=== PATIENT | male | born 1985 | race Caucasian/White ===

== ENCOUNTER 2019-08-21 09:53 | Outpatient (CLI) | payer OTHER, SELFPAY ==
--- NOTE | 2019-08-21 11:00 | NEURO_ITS ---
Patient Number: [id number] Impression: # Complains of left foot drop. # Left peroneal relative slowing compared to posterior tibial. # Left peroneal F-wave prolonged. # Needle/EMG exam revealed scarcity of motor unit potentials in Ant Tibialis, Gastroc and EDB but normal short head of biceps femoris. # Suggestive of peroneal neuropathy. Nerve Conduction Studies Anti Sensory Summary Table Stim Site NR Peak (ms) P-T Amp (?V) Site1 Site2 Delta-P (ms) Dist (cm) Ghulam (m/s) Left Sup Fibular Anti Sensory (Ant Lat Mall) 14 cm 3.6 8.5 14 cm Ant Lat Mall 3.6 16.0 44 Left Sural Anti Sensory (Lat Mall) Calf 3.3 10.6 Calf Lat Mall 3.3 16.0 48 Motor Summary Table Stim Site NR Onset (ms) O-P Amp (mV) Site1 Site2 Delta-0 (ms) Dist (cm) Ghulam (m/s) Left Peroneal Motor (Vastus Med) Ankle 5.0 1.8 Popit Ankle 8.8 41.0 47 Popit 13.8 0.9 Left Tibial Motor (Abd Strickland Brev) Ankle 5.0 10.3 Knee Ankle 7.7 41.0 53 Knee 12.7 8.9 F Wave Studies NR F-Lat (ms) L-R F-Lat (ms) Left Peroneal (Mrkrs) (EDB) 55.31 Left Tibial (Mrkrs) (Abd Hallucis) 51.61 EMG Side Muscle Nerve Root Ins Act Fibs Amp Dur Recrt Comment Left AntTibialis Dp Br Fibular L4-5 Nml Nml Nml Nml Reduced Left Gastroc Tibial S1-2 Nml Nml Nml Nml Reduced Left Fibularis Long Sup Br Fibular L5-S1 Nml Nml Nml Nml Nml Left Flex Dig Long Tibial L5-S2 Nml Nml Nml Nml Nml Left Ext Dig Brev Dp Br Fibular L5, S1 Nml Nml Nml Nml Reduced Left QuadratusFem QuadFemoris L4-5, S1 Nml Nml Nml Nml Nml Left AbdHallucis MedPlantar S1-2 Nml Nml Nml Nml Nml Left BicepsFemS Sciatic L5-S1 Nml Nml Nml Nml Nml MTDD
== END 2019-08-21 09:54 | disposition home or self-care (01) ==
LOC: ANHNEURO 09:56
PROVIDERS: Visit Provider Physician Assistant Surgical
DX: M79.672 Pain in left foot (principal)
CPT/HCPCS: 95886; 95908

== ENCOUNTER 2021-01-26 09:00 | Outpatient (CLI) | payer OTHER, SELFPAY ==
--- NOTE | ~2021-01-26 | US_ITS ---
EXAMINATION: US abdomen complete EXAM DATE: 01/26/2021 10:16 INDICATION: Upper abdominal pain. TECHNIQUE: Multiple grayscale and Doppler images of the complete abdomen were obtained (by a technolo gist who performed the scan) and subsequently reviewed. There is no prior study for comparison. FINDINGS: The abdominal aorta is normal in caliber. Visualized portion IVC is patent. The pancreatic head a nd body are normal in appearance. The pancreatic tail is not visualized. The liver has normal echogenicity and contour. There are no focal liver lesions identified. There is no evidence of intrahepatic biliary duct dilation. Portal venous flow was seen in the hepatopedal , normal direction and has normal Doppler waveform. Common bile duct measures 4 mm, which is normal. The gallbladder wall is normal in thickness, with ex pected amount of distention. No sonographic evidence of pericholecystic fluid. There is no cholelit hiases. Technologist performing exam reports patient did not demonstrate sonographic Ballard's sign. Please note that this sign is less reliable in patients who have received pain medication. Right kidney: There is normal contour and echogenicity. It measures 10.4 x 5.6 x 4.1 centimeters. There are no focal renal lesions identified. There is no hydronephrosis. Left kidney: There is normal contour and echogenicity. It measures 11.0 x 5.0 x 5.2 centimeters. T here are no focal renal lesions identified. There is no hydronephrosis. The spleen measures 9.9 centimeters and is morphologically normal. IMPRESSION: Unremarkable complete abdominal ultrasound exam. Reviewed, dictated and finalized at location B. 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
== END 2021-01-26 09:01 | disposition home or self-care (01) ==
LOC: ANHIMG 09:03
PROVIDERS: PCP Physician Assistant; Visit Provider Physician Assistant
DX: R10.10 Upper abdominal pain, unspecified (principal)
CPT/HCPCS: 76700

== ENCOUNTER 2021-02-01 08:16 | Outpatient (CLI) | payer OTHER, SELFPAY ==
--- NOTE | ~2021-02-01 | XR_ITS ---
EXAMINATION: XR UGIAC w small bowel EXAM DATE: 02/01/2021 09:27 INDICATION: Upper abdominal pain, alternating constipation and diarrhea. TECHNIQUE: Mix [employer]ender radiograph was acquired. Standard single and double contrast barium upper GI examina tion and small bowel series was performed by radiologist Pelon Wyatt M.D. Spot images of the termina l ileum were acquired. Pulsed dose reduction fluoroscopy was used with fluoroscopic time of 0.5 ashlee gay. The DAP for this procedure was 6.3 Gycm2. A total of 101 images obtained for the exam. There is no prior study for comparison. FINDINGS: There is no esophageal stricture, diverticulum or mass identified. Gastroesophageal juncti on is normal in appearance. There is small sliding gastroesophageal hiatal hernia with mild reflux de monstrated. The stomach has a normal appearance without evidence of mass lesion, ulceration or filling defect. T here is normal rugal fold pattern. The duodenum and duodenal sweep are normal in appearance. Ileal and jejunal fold patterns are normal. There is no small bowel wall thickening or mass effect d isplacing small bowel. There are no intraluminal filling defects identified. There is no small michel l dilation. Terminal ileum is normal in appearance. Contrast reached the colon 30 minutes. IMPRESSION: Small hiatal hernia, reflux demonstrated. Unremarkable small bowel. Reviewed, dictated and finalized at location A. 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
== END 2021-02-01 08:17 | disposition home or self-care (01) ==
LOC: ANHIMG 08:18
PROVIDERS: PCP Physician Assistant; Visit Provider Physician Assistant
DX: R10.10 Upper abdominal pain, unspecified (principal); K44.9 Diaphragmatic hernia without obstruction or gangrene
CPT/HCPCS: 74246; 74248

== ENCOUNTER 2023-09-05 07:00 | Outpatient (NON) | payer OTHER, SELFPAY | END 2023-09-05 07:01 | disposition home or self-care (01) | LOC: ANHLAB 09-06 08:37 | PROVIDERS: PCP Physician Assistant; Visit Provider Internal Medicine Gastroenterology | DX: K63.5 Polyp of colon (principal); K52.9 Noninfective gastroenteritis and colitis, unspecified | CPT/HCPCS: 88305 ==

== ENCOUNTER 2023-09-05 10:27 | Day surgery (SDC) | payer OTHER, SELFPAY ==
[2023-08-29 11:29] VITALS: BMI 24.3
[2023-08-30 12:50] VITALS: BMI 24.4
--- NOTE | 2023-09-04 07:33 | P.PNAN_ITS ---
Anes - Initial Pre Proc Eval Procedure: Operation Date: 09/05/23 12:30 Proposed Procedures p Diagnostic Colonoscopy - Joey Vazquez MD Date/Time: 09/04/23 07:33 Surgeon: Joey Vazquez MD Pre Op Diagnosis: Irritable Bowel Syndrome with Diarrhea Patient Data Age: 38 Gender: M Height: 1.78 m Weight: 77.3 kg Allergies Allergy/AdvReac Type Severity Reaction Status Date / Time Penicillins Allergy Mild Swelling Verified 09/05/23 11:04 Home Medications Medication Instructions Recorded Confirmed Type sertraline 50 mg tablet 75 mg PO DAILY 08/30/23 09/05/23 History Patient hx anesthesia problems: none Family hx anesthesia problems: none Results Review: All pre-operative results and documents have been reviewed as part of the pre- operative evaluation. PMFSH Past Medical History Medical History Anxiety Hypothyroidism Social History Social History Smoking packs per day: 1 Smoking cigarettes per day: 20.0 Years smoked: 17 Smoking pack-years: 17.00 Smoking status: Current every day smoker Tobacco type: cigarettes Alcohol intake: current Alcohol use details: 2 per week Substance use type: does not use Living arrangements: with family Spiritual care concerns: No Anes - Eval Final PreProcedure Day of Procedure 09/04/23 07:33 Patient weight: normal Heart: regular rate and rhythm Lungs: clear to auscultation and normal air movement Airway: Mallampati scale class 1 Neurological: alert and oriented Last oral intake: >/= 8 hours ASA classification: II Emergent: no Anesthetic plan: proceed Anesthesia type and monitoring: general GIVS and standard monitoring Results Review: All pre-operative results and documents have been reviewed as part of the pre- operative evaluation. Informed Consent: The patient's anesthetic plan and its attendant risks and benefits were discussed with the patient/family/POA. Questions were solicited and answers provided to the satisfaction of the patient/family/POA.
--- NOTE | 2023-09-05 10:42 | P.HP_ITS ---
History of Present Illness History of Present Illness Consent: Risks, benefits, and alternatives have been discussed and questions answered. Patient agrees to proceed with procedure. Chief complaint: Irritable Bowel Syndrome with Diarrhea Narrative: Macario Lopez is a 38 year old male who has been troubled by chronic diarrhea. Review of Systems Review of Systems: All systems reviewed & are unremarkable except as noted in HPI and below PMFSH Past Medical History Medical History Anxiety Hypothyroidism Social History Social History Smoking packs per day: 1 Smoking cigarettes per day: 20.0 Years smoked: 17 Smoking pack-years: 17.00 Smoking status: Current every day smoker Tobacco type: cigarettes Alcohol intake: current Alcohol use details: 2 per week Substance use type: does not use Living arrangements: with family Spiritual care concerns: No Meds Home Medications and Allergies Home Medications Medication Instructions Recorded Confirmed Type sertraline 50 mg tablet 75 mg PO DAILY 08/30/23 09/05/23 History Allergies Allergy/AdvReac Type Severity Reaction Status Date / Time Penicillins Allergy Mild Swelling Verified 09/05/23 11:04 Exam Resp: Auscultation: clear to auscultation bilaterally Cardio: Rate: regular rate Rhythm: regular rhythm GI: GI Palp: Yes Soft to palpation and No Tenderness to palpation present (GI) Assessment and Plan Assessment and plan (1) Chronic diarrhea: Code(s): K52.9 - Noninfective gastroenteritis and colitis, unspecified Status: Acute Assessment and Plan: Colonoscopy with possible biopsy or polypectomy or cautery or injection of gong bstances.
[2023-09-05 11:05] VITALS: BP 122/89; PULSE 84; RESP 18; TEMP 37; O2SAT 98
[2023-09-05] MEDS: LACTATED RINGERS 1,000 ML 150 ML IV CONT (11:07)
[2023-09-05 12:01] VITALS: BP 112/85; PULSE 73; RESP 16; O2SAT 100
[2023-09-05 12:51] VITALS: BP 107/71; PULSE 68; RESP 14; O2SAT 98
[2023-09-05 13:01] VITALS: BP 112/85; PULSE 73; RESP 16; O2SAT 100
[2023-09-05 13:11] VITALS: BP 129/86; PULSE 69; RESP 16; O2SAT 100
--- NOTE | 2023-09-05 13:43 | WPDANESPN ---
Anes - Prog Note Post-Op Date/Time: 09/05/23 13:43 Cardiovascular status: normal Respiratory status: normal Airway patency: baseline Mental status: baseline Post-Op hydration status: normal Vital Signs: Last Vital Signs Temp 37.0 C 09/05/23 11:05 Pulse 69 09/05/23 13:11 Resp 16 09/05/23 13:11 BP 129/86 09/05/23 13:11 Pulse Ox 100 09/05/23 13:11 O2 Del Method Room Air 09/05/23 13:11 Pain Score (VAS): 0 I/O: Intake & Output 09/04/23 09/05/23 09/05/23 23:59 07:59 15:59 Intake Total 800 Balance 800 Post-procedural complaints: none Patient Feedback: Patient satisfied with anesthetic care. Other Findings: Patient vital signs back to baseline. Patient denies nausea and vomiting. Patient's pain under control. Patient OK for discharge.
== END 2023-09-05 13:30 | disposition home or self-care (01) ==
PROVIDERS: PCP Physician Assistant; Visit Provider Internal Medicine Gastroenterology
PROC: 0DJD8ZZ Inspection of Lower Intestinal Tract, Via Natural or Artificial Opening Endoscopic (ICD-10-PCS; CPT 45378; principal; 2023-09-05 12:30)
DX: D12.5 Benign neoplasm of sigmoid colon (principal); K64.8 Other hemorrhoids; K59.1 Functional diarrhea
CPT/HCPCS: 45385; 45380

== ENCOUNTER 2025-01-07 13:35 | Emergency (ER) | payer OTHER, SELFPAY ==
--- OUTSIDE RECORDS SUMMARY | 2024-10-08 05:15 | XMS_ITS ---
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 Name Role Phone Stefanie Mars Primary Care Provider Donovan Pan Unavailable [phone] REASON FOR VISIT 1 month f/u Social History Sex Assigned At : Social History Observation Description Sex Assigned At Male Encounters Encounter Location Date Provider Diagnosis [facility] [employer] [facility] [address] [place] [address] 10/08/2024 Donovan Montilla Plan Of Treatment No Information Progress Notes * DARREN BILL ADOB: [birth year] (39 yo M)Acc No.[id number]:10/08/2024 Patient: DARREN WELCH Provider: KALANI CARVALHO :1985 A ge:39 Y S ex:Male Date:10/08/2024 [facility] [id number] Pcp:Stefanie KENNY Subjective: * Chief Complaints: * 1 month f/u * Electronic signature of KALANI Lindsay on 01/07/2025 at 03:41 PM CDT Sign off status: Pending * Provider: KALANI CARVALHO Date: 0 10/08/2024 Generated for Printi ng/Faxing/eTransmitting on: 1 03:41 PM CDT
--- OUTSIDE RECORDS SUMMARY | 2024-12-13 09:00 | XMS_ITS ---
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 Role Phone Stefanie Mars Primary Care Provider Donovan Pan Unavailable [phone] REASON FOR VISIT 1 month f/u Social History Sex Assigned At : Social History Observation Description Sex Assigned At Male Encounters Encounter Location Date Provider Diagnosis [facility] [employer] [facility] [address] [place] [address] 12/13/2024 Donovan Montilla Plan Of Treatment No Information Progress Notes * DARREN BILL ADOB: [birth year] (39 yo M)Acc No.[id number]:12/13/2024 Patient: DARREN WELCH Provider: KALANI CARVALHO :1985 A ge:39 Y S ex:Male Date:12/13/2024 Address:[address] [facility] Pcp:Stefanie KENNY Subjective: * Chief Complaints: * 1 month f/u Billing Information: * Procedure Codes: * Electronic signature of KALANI Lindsay on 01/07/2025 at 03:40 PM CDT Sign off status: Pending * Provider: KALANI CARVALHO Date: Generated for Printi ng/Faxing/eTransmitting on: 03:40 PM CDT
--- OUTSIDE RECORDS SUMMARY | 2024-12-13 11:30 | XMS_ITS ---
Author Organization [facility] Address [address] [facility] [address] [place] [address] Care Team Providers Care Associate Director Name Role Phone Stefanie Mars Primary Care Provider Donovan Pan Unavailable [phone] Allergies Allergen (clinical drug ingredient) Drug/Non Drug Allergy documented on EMR Reaction Allergy Type Onset Date Status Penicillin Unknown Drug Allergy Active REASON FOR VISIT Consultation Medications Medication SIG (Take, Route, Frequency, Duration) Notes Start Date End Date Status FLUoxetine HCl 40 MG Capsule 1 capsule Orally Once a day; Duration: 30 days 12/13/2024 Active Rosuvastatin Calcium 10 MG Tablet TAKE 1 TABLET BY MOUTH EVERY DAY IN THE EVENING Oral; Duration: 90 Days Not-Taking NyQuil Not-Taking traZODone HCl 50 MG Tablet 0.5 to 1 tablet at bedtime Orally Once a day; Duration: 30 days As needed 08/20/2024 Not-Taking buPROPion HCl ER (XL) 300 MG Tablet Extended Release 24 Hour 1 tablet every morning Orally Once a day; Duration: 30 days 12/13/2024 Active valACYclovir HCl 1 GM Tablet TAKE 1 TABLET BY MOUTH EVERY 12 HOURS FOR 1 DAY NEEDED FOR FLARE UP ONLY Oral; Duration: 10 Days Active buPROPion HCl ER (XL) 300 MG Tablet Extended Release 24 Hour TAKE 1 TABLET BY MOUTH EVERY DAY IN THE MORNING; Duration: 90 Not-Taking FLUoxetine HCl 20 MG Capsule 3 capsule Orally Once a day; Duration: 30 days Active Social History Tobacco Use: Social History Observation Description Date Details (start date - stop date) Current Smoker 03/13/2004 - NA Sex Assigned At : Social History Observation Description Sex Assigned At Male Social History Social History Social Info Question Answer Notes Household: Marital Status: Single Number of Adults in household: 1 Number of Children in Household: 0 Level of Education: Not Finished College Household: Social Info Question Answer Notes Household Marital status: single Level of education: not finished college Tobacco Use: Social Info Question Answer Notes Tobacco Control (Standard) When did you start smoking? 03/13/2004 How often do you smoke cigarettes? Every day How many cigarettes a day do you smoke? 11-20 How soon after you wake up do you smoke your first cigarette? 6-30 minutes Are you interested in quitting? Thinking about quitting Tobacco use: Current smoker Vital Signs Blood pressure systolic 121 mm Hg 12/14/19 25 Blood pressure diastolic 77 mm Hg 025 Heart Rate 67 /min 12/13/2024 Height 70 in 12/13/2024 Weight 161 lbs 12/13/2024 BMI 23.1 kg/m2 12/13/2024 Height-cm 177.8 cm 12/13/2024 Weight-kg 73.03 kg 12/13/2024 Encounters Encounter Location Date Provider Diagnosis [facility] [address] [place] [address] [address] [facility] [address] [place] [address] 12/13/2024 Donovanpetra Roachoza DAMIR (generalized anxiety disorder) F41.1 ; Severe episode of recurrent major depressive disorder, without psychotic features F33.2 ; Insomnia due to other mental disorder F51.05 and Nicotine dependence, cigarettes, uncomplicated F17.210 Assessments Encounter Date Diagnosis (ICD Code) Assessment Notes Treatment Notes Treatment Clinical Notes Section Notes 12/13/2024 DAMIR (generalized anxiety disorder) (ICD-10 - F41.1) 12/13/2024 Severe episode of recurrent major depressive disorder, without psychotic features (ICD-10 - F33.2) 12/13/2024 Insomnia due to other mental disorder (ICD-10 - F51.05) may try magnesium glycinate 200mg at bedtime 12/13/2024 Nicotine dependence, cigarettes, uncomplicated (ICD-10 - F17.210) Plan Of Treatment Medication Medication Name Sig Start Date Stop Date Notes FLUoxetine HCl 40 MG Capsule 1 capsule O rally Once a day; Duration: 30 days 12/13/2024 buPROPion HCl ER (XL) 300 MG Tablet Extended Release 24 Hour 1 tablet every morning Orally Once a day; Duration: 30 days 12/13/2024 Treatment Notes Assessment Notes Insomnia due to other mental disorder david y try magnesium glycinate 200mg at bedtime Next Appt Details Follow Up: 2 Months, Reason: f/u depression History and Physical Notes * HPI (History of Present Illness) Category Sub-Category Detail Notes Category Not es History of Presenting Problem Referral source transfer from walk in clinic Depression screening done Anxiety Onset: years ago, As sociated Symptoms: fearful, doesn't like to be around people unless has a beer or two, worst case scenario thinking, anxious before social settings, worries what people think of him, heart racing, skin flushing, trembling, wont use a public bathroom panic attacks Depression Onset: years ago, hi gh school age, Associated Symptoms: No enjoyment in things, self isolates, decreased motivation, not caring for home Substance abuse smokes 1ppd cigarett es, alcohol use maybe once a month- 2.5 drinks Anger management used to get angry wh en did something stupid, easily frustrated Suicidal ideation took a bunch of pi lls one time, no suicide plan. Would be ok if he didn't wake up. Would like to not be here in 5 years. States his pets are his responsibility, family, friends. Sleep disturbance difficulty falling a sleep Psychosis no psychosis Psychotherapy went in 2019, after break up with a girlfriend Lynn/Hypomania denies Self-harm history denies Legal History denies Depression screening PHQ-9 Little inte rest or pleasure in doing things: Several days Feeling down, depressed, or hopeless: Se veral days Trouble falling or staying asleep, or sl eeping too much: Nearly every day Feeling tired or having little energy: S everal days Poor appetite or overeating: Not at all Feeling bad about yourself o r that you are a failure, or have let yourself or your family down: Several days Trouble concentrating on thi ngs, such as reading the newspaper or watching television: Not at all Moving or speaking so slowly that other people could have noticed; or the opposite, being so fidgety or restless that you have been moving around a lot more than usual: Not at all Thoughts that you would be b lux off or of hurting yourself in some way: Nearly every day (Consider Suicide Assessment Risk) Total Score: 10 Interpretation: Moderate Depression Intervention Depression Screening Findings: P ositve Follow-Up for Depression: [facility] health care management, Psychiatric follow-up Suicide Risk Assessment Performed: __ da te Depression Screening DAMIR-7 (2018 Edition) Feelin g nervous, anxious, or on edge: Several days Not being able to stop or control worryi ng: Several days Worrying too much about different things : Several days Trouble relaxing: Not at all Being so restless that it is hard to sit still: Several days Becoming easily annoyed or irritable: No t at all Feeling afraid as if something awful dustin ht happen: Several days Total DAMIR-7 Score: 5 Interpretation of Total: (5 to 9) Mild Nolan-Suicide Severity Rating Scale Suicide Risk (CSRS-screener) in the past one month Have you wished you were or wished you could go to sleep and not wake up?: Yes in the past one month Have y ou actually had any thoughts of killing yourself?: No Examination Category Sub-Category Detail Notes Category Not es Psychiatry Appearance: well-groomed, we ll-nourished, ..., slender build Attitude: cooperative Psychomotor activity: within normal rang e Attention: good Degree of awareness of surroundings: wit hin normal limits Orientation: awake, alert and hiral ented x 3 Affect / mood: appropriate, full ra nge Speech / language: appropriate pitch/mo dulation, clear and coherent, normal rate, volume, and articulation (RVR), proper grammar used Insight: good Judgement: good Thought process: intact Thought content: appropriate Perceptual disorders: no perceptual diso rder noted Suicidal ideation: none Intellectual functioning: no impairment noted Memory status: no impairment noted Delusions: no Hallucinations: no Progress Notes * DARREN BILL ADOB: [birth year] (39 yo M)Acc No.[id number]:12/13/2024 Patient: DARREN WELCH Taye Provider: KALANI CARVALHO :1985 A ge:39 Y S ex:Male Date:12/13/2024 Address:[address] [place], [place] [id number] Pcp:Stefanie KENNY Subjective: * Chief Complaints: * C onsultation * HPI: H istory of Presenting Problem: Depression O nset: years ago, high school age, Associated Symptoms: No enjoyment in things, self isolates, decreased motivation, not caring for home. Anxiety O nset: years ago, A ssociated Symptoms: fearful, doesn't like to be around people unless has a beer or two, worst case scenario thinking, anxious before social settings, worries what people think of him, heart racing, skin flushing, trembling, wont use a public bathroom p anic attacks. Sleep disturbance d ifficulty falling asleep. Lynn/Hypomania d enies. Psychosis n o psychosis. Suicidal ideation took a bunch of pills one time, no suicide plan. Would be ok if he didn't wake up. Would like to not be here in 5 years. States his pets are his responsibility, family, friends. Substance abuse s mokes 1ppd cigarettes, alcohol use maybe once a month- 2.5 drinks. Psychotherapy w ent in 2019, after break up with a girlfriend. Anger management u sed to get angry when did something stupid, easily frustrated. Self-harm history d enies. Legal History d enies. Referral source holly brown from walk in clinic. Depression screening done. D epression Screening: DAMIR-7 (2018 Edition) F eeling nervous, anxious, or on edge S everal days N ot being able to stop or control worrying?Several days W orrying too much about different things S everal days T rouble relaxing N ot at all B eing so restless that it is hard to sit still S everal days B ecoming easily annoyed or irritable N ot at all F eeling afraid as if something awful might happen S everal days T otal DAMRI-7 Score 5 I nterpretation of Total ( 5 to 9) Mild [place]-Suicide Severity Rating Scale: Suicide Risk (CSRS-screener) i n the past one month Have you wished you were or wished you could go to sleep and not wake up? Y es i n the past one month Have you actually had any thoughts of killing yourself? N o D epression screening: PHQ-9 L ittle interest or pleasure in doing things?Several days F eeling down, depressed, or hopeless S everal days T rouble falling or staying asleep, or sleeping too much N early every day F eeling tired or having little energy S everal days P oor appetite or overeating N ot at all F eeling bad about yourself or that you are a failure, or have let yourself or your family down S ever days T rouble concentrating on things, such as reading the newspaper or watching television N ot at all M oving or speaking so slowly that other people could have noticed; or the opposite, being so fidgety or restless that you have been moving around a lot more than usual N ot at all T houghts that you would be better off or of hurting yourself in some way N early every day (Consider Suicide Assessment Risk) T otal Score 1 0 I nterpretation M oderate Depression Intervention D epression Screening Findings P ositve F ollow-Up for Depression M ental health care management, Psychiatric follow-up S uicide Risk Assessment Performed _ _ date P ast Psychiatric Medications: melatonin- didn't work, Nyquil, sertraline- not effective, trazodone-not effective, bupropion, fluoxetine, amitriptyline. * Medical History: Past Psychiatric History: Anxiety Disorder abdominal aortic aneurysm: No atrial fibrillation: No chronic fatigue syndrome: No essential tremor: No hyperlipidemia: No hypertension: No Parkinson's disease: No restless leg syndrome: No stroke: No subdural hematoma: No type 1 diabetes mellitus: No type 2 diabetes mellitus: No vitamin B12 deficiency: No vitamin D deficiency: Yes Herpes simplex virus 1 Hyperlipidemia Imported from [facility]: On 07/04/2024 the patient had an office visit with Dr. Jonathan Alcantara. During this visit, the patient was screened for diabetes mellitus and had a positive screening for depression on the PHQ-9. Other issues addressed included a skin cyst, generalized anxiety disorder, hyperlipidemia, hypothyroidism, intrusive thoughts, and long-term drug therapy. The patient's body mass index was noted to be within the normal range of 20-24. Medical History Verified * Surgical History: shoulder surgery wisdom teeth extraction Hemorrhoid and anal fissure repair Surgical History verified. * Hospitalization/Major Diagno stic Procedure: inpatient psychiatric hospitalization- anxiety/panic Hospitalization Verified. * Social History: T obacco Use: T obacco Control (Standard) W hen did you start smoking? H ow often do you smoke cigarettes? E very day H ow many cigarettes a day do you smoke? 1 1-20 H ow soon after you wake up do you smoke your first cigarette? 6 -30 minutes A re you interested in quitting? T hinking about quitting T obacco use: C urrent smoker H ousehold: Bernardo justyna Taz arital status: s priya L evel of education: n ot finished college S ocial History: H justyna Mcghee arital Status: S priya N umber of Adults in household: 1 N umber of Children in Household: 0 L evel of Education: N ot Finished College S ocial History Verified. * Medications: T akingvalACYclovir HCl 1 GM Tablet TAKE 1 TABLET BY MOUTH EVERY 12 HOURS FOR 1 DAY NEEDED FOR FLARE UP ONLY Oral buPROPion HCl ER (XL) 300 MG Tablet Extended Release 24 Hour 1 tablet every morning Orally Once a day FLUoxetine HCl 20 MG Capsule 3 capsule Orally Once a day Taking valACYclovir HCl 1 GM Tablet TAKE 1 TABLET BY MOUTH EVERY 12 HOURS FOR 1 DAY NEEDED FOR FLARE UP ONLY Oral Taking buPROPion HCl ER (XL) 300 MG Tablet Extended Release 24 Hour 1 tablet every morning Orally Once a day Taking FLUoxetine HCl 20 MG Capsule 3 capsule Orally Once a day Not-TakingbuPROPion HCl ER (XL) 300 MG Tablet Extended Release 24 Hour TAKE 1 TABLET BY MOUTH EVERY DAY IN THE MORNING NyQuil Rosuvastatin Calcium 10 MG Tablet TAKE 1 TABLET BY MOUTH EVERY DAY IN THE EVENING Oral traZODone HCl 50 MG Tablet 0.5 to 1 tablet at bedtime Orally Once a day As neededNot-Taking buPROPion HCl ER (XL) 300 MG Tablet Extended Release 24 Hour TAKE 1 TABLET BY MOUTH EVERY DAY IN THE MORNING Not-Taking NyQuil Not-Taking Rosuvastatin Calcium 10 MG Tablet TAKE 1 TABLET BY MOUTH EVERY DAY IN THE EVENING Oral Not-Taking traZODone HCl 50 MG Tablet 0.5 to 1 tablet at bedtime Orally Once a day As neededDiscontinuedAmitriptyline HCl 25 MG Tablet TAKE 1 TABLET BY MOUTH EVERYDAY AT BEDTIME Medication List reviewed and reconciled with the patientDiscontinued Amitriptyline HCl 25 MG Tablet TAKE 1 TABLET BY MOUTH EVERYDAY AT BEDTIME Medication List reviewed and reconciled with the patient * Allergies: P enicillinyesAllergies Verified. Objective: * Vitals: B P:121/77mm Hg, HR:67/min, Wt:161lbs, Wt-k.03 kg, Ht: 70 in, Ht-cm: 177.8 cm, BMI:23.1Index, Body Surface Area: 1.9. * Examination: P sychiatry: Appearance: w ell-groomed, well-nourished, ..., slender build. Affect / mood: a ppropriate, full range. Attention: g ood. Attitude: c ooperative. Suicidal ideation: n one. Memory status: n o impairment noted. Degree of awareness of surroundings: w ithin normal limits.? Delusions: n o. Hallucinations: n o. Insight: g ood. Intellectual functioning: n o impairment noted. Judgement: g ood. Orientation: a wake, alert and oriented x 3. Perceptual disorders: n o perceptual disorder noted. Psychomotor activity: w ithin normal range. Speech / language: a ppropriate pitch/modulation, clear and coherent, normal rate, volume, and articulation (RVR), proper grammar used. Thought content: a ppropriate. Thought process: i ntact. Assessment: * Assessment: 1. S evere episode of recurrent major depressive disorder, without psychotic features - F33.2 (Primary) 2 . G AD (generalized anxiety disorder) - F41.1 3 .?Insomnia due to other mental disorder - F51.05 4 . N icotine dependence, cigarettes, uncomplicated - F17.210 Plan: * Treatment: 2. I nsomnia due to other mental disorder Notes: may try magnesium glycinate 200mg at bedtime * Procedure Codes: 9 6127 BEHAV ASSMT W/SCORE & DOCD/STAND INSTRUMENT * Preventive Medicine: Screenings: D epression screening Have you had a recent depression screening? Y es * Follow Up: 2 Months (Reason: f/u depression) Billing Information: * Visit Code: 00508 OFFICE OUTPATIENT VISIT 25 MINUTES DETAILED HISTORY AND EXAM/MODERATE MEDICAL DECISION MAKING. * Procedure Codes: 60963 BEHAV ASSMT W/SCORE & DOCD/STAND INSTRUMENT. * Electronic signature of KALANI Lindsay on 01/07/2025 at 03:40 PM CDT Sign off status: Pending * Provider: KALANI CARVALHO Date: 1 Generated for Connie nance/Shelli/Yao on: 03:40 PM CDT
--- NOTE | 2025-01-07 13:37 | ED_ITS ---
HPI - URI/Sore Throat General Chief Complaint: Upper Respiratory Infection Stated Complaint: Sore throat / Head Pain Time Seen by Provider: 01/07/25 13:36 Source: patient Mode of arrival: ambulatory Limitations: no limitations History of Present Illness HPI Narrative: Patient is a 39-year-old male who presents with 5 days of sore throat, congestion, cough and headache. Patient has taken NyQuil. Denies any fever, chills, nausea, vomiting, diarrhea, cough, congestion. Related Data Home Medications ?Medication ?Instructions ?Recorded ?Confirmed ?Last Taken ?Type sertraline 50 mg tablet 75 mg PO DAILY 08/30/23 06/08/0309/05/23 08:00 History bupropion HCl 300 mg 24 hr tablet, mg PO 01/07/25 Unk nown History extended release fluoxetine 40 mg capsule mg 01/07/25 Unknown History rosuvastatin 10 mg tablet mg 01/07/25 Unknown History valacyclovir 1 gram tablet mg 01/07/25 Unknown Histor y Allergies Allergy/AdvReac Type Severity Reaction Status Date / Time Penicillins Allergy Unknown Unknown Verified 01/07/25 13:49 Review of Systems Review of Systems: All systems reviewed & are unremarkable except as noted in HPI and below Constitutional: Constitutional: Denies chills, Denies fatigue, Denies fever(s), Reports headache(s), Denies malaise and Denies weakness Eyes: Eyes: Denies blurry vision, Denies itchy eyes and Denies loss of vision ENT: Denies otalgia, Denies headache(s), Reports nasal congestion, Denies sinus pain and Reports sore throat Cardiovascular: Cardiovascular: Denies chest pain, Denies irregular heart rhythm and Denies dyspnea Respiratory: Respiratory: Reports cough and Denies dyspnea Gastrointestinal: Gastrointestinal: Denies abdominal pain, Denies diarrhea, Denies nausea and Denies vomiting Musculoskeletal: Musculoskeletal: Denies back pain, Denies myalgias and Denies arthralgias Integumentary/Breasts: Skin/Breast: Denies pruritus and Denies rash Neurologic: Denies headache(s), Denies loss of vision and Denies weakness Psychiatric: Psychiatric: Reports no additional psychiatric complaints Endocrine: Endocrine: Denies fatigue Allergic/Immunologic: Allergic/Immunologic: Denies itchy eyes PMFSH Past Medical History Medical History Anxiety Hypothyroidism Social History Social History Smoking packs per day: 1 Smoking cigarettes per day: 20.0 Years smoked: 17 Smoking pack-years: 17.00 Smoking status: Current every day smoker Tobacco type: cigarettes Alcohol intake: current Alcohol use details: 2 per week Substance use type: does not use Living arrangements: with family Spiritual care concerns: No Comments At time of signature, agree with nursing past medical, surgical, social and family history. There is no relevant family history pertinent to the presenting complaint. Exam Const: General: cooperative, healthy appearing, comfortable, no acute distress and well nourished Nutritional Appearance: well nourished Orientation/consciousness: patient oriented x3 Limitations: no limitations HENMT: Head: normal to inspection, normocephalic and atraumatic Ears: hearing grossly normal bilaterally, external ears normal, TM's normal bilaterally, EAC's normal and no periauricular adenopathy Face/Nose/Sinus: Normal external nose present, Abnormal mucous membranes and turbinates present erythematous bilateral and diffuse, normal facial exam, sinuses nontender and face symmetric Face and sinus: normal facial exam, sinuses nontender and face symmetric Mouth: Yes Normal oral and palatal mucosa present, Yes lip normal, Yes tongue normal, Yes Normal salivary glands and ducts present, Yes oropharynx normal and Yes moist mucous membranes Teeth and gingiva: dentition normal Throat: posterior oropharynx normal, tonsils normal and uvula midline Eyes: General: appearance normal, both eyes and all related structures Alignment and Position: alignment normal and position normal Periorbital: periorbital findings normal Eyelids: eyelids normal Pupils: Equal, round and reactive pupils present Neck: Neck: normal visual inspection, full ROM, no lymphadenopathy and supple Chest: Chest palpation & inspection: normal inspection of the chest and normal palpation of entire chest wall Resp: Effort & Inspection: normal respiratory effort and able to speak in complete sentences Auscultation: clear to auscultation bilaterally, no crackles, no rales, no rhonchi and no wheezes Cardio: Rate: regular rate Rhythm: regular rhythm Heart sounds: S1 normal heart sound present and S2 normal heart sound present GI: Inspection: normal to inspection Skin: General skin exam: normal color and no rashes or lesions noted Neuro: General: patient oriented x3 and moves all extremities Cranial nerves: Yes Equal, round and reactive pupils present Speech: normal speech Gait exam (Neuro): Normal gait present Extrem: General: normal to inspection, full ROM and no edema Psych: Appearance: grossly normal and well kempt Mental Status: mental status grossly normal Speech and movement: Normal speech and movement present Affect: normal affect Attitude: cooperative Thought process: Normal thought process present Course Course Emergency Course: Discharge instructions reviewed with patient, as well as provided in writing per nursing staff. The instructions also include specific and strict return/GO TO THE ER as well as f/u information. All questions have been answered, and the patient deny any further questions with discharge and discharge plan. Portions of this record may have been created with voice recognition software Level of Care: Express Care Visit Vital Signs Vital signs: Vital Signs Temperature 36.5 C 01/07/25 13:46 Pulse Rate 76 01/07/25 13:46 Respiratory Rate 18 01/07/25 13:46 Blood Pressure 135/76 01/07/25 13:46 Pulse Oximetry 100 01/07/25 13:46 Oxygen Delivery Room Air 01/07/25 13:46 Temperature 36.5 C 01/07/25 13:46 Pulse Rate 76 01/07/25 13:46 Respiratory Rate 18 01/07/25 13:46 Blood Pressure 135/76 01/07/25 13:46 Pulse Oximetry 100 01/07/25 13:46 Oxygen Delivery Room Air 01/07/25 13:46 Reviewed MDM - URI/Sore Throat MDM Narrative Medical decision making narrative: Pt well hydrated appearing, in no respiratory distress, hemodynamically stable. Recommend supportive care. The patient is stable at time of discharge the clinical impression was discussed and the patient was given the opportunity to ask questions, which were addressed as completely as possible given the information available at present. Anticipatory guidance and return to care precautions were discussed and the importance of primary care follow-up was stressed and encouraged. The patient voiced understanding of the plan, indications to return, and the need for follow-up. Exam findings show no acute concerns or changes Patient is appropriate for outpatient treatment and follow-up. Differential diagnosis considered: Ramos virus, strep pharyngitis, allergic rhinitis, upper respiratory tract infection, sinusitis, rhinosinusitis, nasopharyngitis. viral pharyngitis, otitis media, otitis externa, otitis effusi on, foreign body, cerumen impaction, viral syndrome, and influenza.? Medical Records Attestation: I reviewed the patient's medical records. Lab Data Attestation: I reviewed the patient's lab results. Labs: Lab Results 01/07/25 Range/Units 14:01 POC Grp A Strep Screen Negative (Negative) Discharge Plan Discharge Clinical Impression: Upper respiratory infection Qualifiers: URI type: acute nasopharyngitis (common cold) Qualified Code(s): J00 - Acute nasopharyngitis [common cold] Patient Disposition: Home Condition: Stable Instructions: Upper Respiratory Infection (ED) Additional Instructions: Your rapid strep swab was negative today at [facility]. A throat culture will be sent to the laboratory for further testing. If the test is positive, you will receive a phone call within 48 hours and an appropriate antibiotic will be initiated at that time. Your symptoms are likely due to a viral illness, which is not treated with antibiotics. Viral symptoms can be present for up to a few weeks. -For pain/fever, you may take: Tylenol 650-1000mg by mouth every 4-6 hours. Do not exceed 4000mg in 24 hours. Advil (Ibuprofen) 600 mg by mouth every 6 hours. Do not exceed 2400mg in 24 hours. 8 AM: Tylenol 11 AM: Ibuprofen 2 PM: Tylenol 5 PM: Ibuprofen 8 PM: Tylenol 11 PM: Ibuprofen 2 AM: Tylenol 5 AM: Ibuprofen -Antihistamine medication such as Benadryl/Zyrtec at night and Claritin/Josefina during the day can help improve symptoms. -Use Flonase twice a day for 5 days then daily to help reduce the inflammation and dry up your sinuses. -You can also use Sudafed behind the pharmacy counter(12 or 24 hour). Be sure to drink plenty of water with these medications at least 8 ounces with every dose and it is important to drink 8 to 10 glasses of water per day. Water is a natural decongestant -Eat and drink things that are easy to swallow, like tea or soup, or popsicles. -Oral rinses such as: Salt water gargles and/or may use topical anesthetic (eg. Chloraseptic spray) or lozenges to relieve dryness or throat pain). -Frequent hand washing or hand fence supervisor is one of the best ways to prevent spread of infection. -Using a vaporizer or humidifier at night will also help thin secretions and help with coughing up phlegm. Call your Primary Care Doctor and make a follow-up appointment in 3 days. If your cough worsens, you develop a fever greater than 103, you develop shaking chills, a fast heartbeat, trouble breathing and/or feel you are are breathing much faster than usual, call your Primary Care Doctor or go to the ER. Patient Language: Romansh Prescriptions: New benzonatate 100 mg capsule 100 mg PO BID PRN (Reason: cough) Qty: 14 0RF fluticasone propionate [Flonase Allergy Relief] 50 mcg/actuation spray,suspension 1 spray intranasal DAILY Qty: 16 0RF Rx Instructions: administer into each nostril No Action fluoxetine 40 mg capsule valacyclovir 1 gram tablet rosuvastatin 10 mg tablet bupropion HCl 300 mg tablet extended release 24 hr PO sertraline 50 mg tablet 75 mg PO DAILY Follow-up/Referrals: Mio,ROSAURA Watts [Primary Care Provider, Unknown] - 3 Days Time of Disposition: 14:07
[2025-01-07 13:46] VITALS: BP 135/76; PULSE 76; RESP 18; TEMP 36.5; O2SAT 100
[2025-01-07 14:03] LABS: EDSTREPNEGPOS1 Negative (Negative)
--- OUTSIDE RECORDS SUMMARY | 2025-01-07 15:41 | XMS_ITS | Patient Health Record ---
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 Name Role Phone Stefanie Mars Primary Care Provider Mitchell Pan Unavailable [phone] Iain Garcia Unavailable [phone] Allergies Allergen (clinical drug ingredient) Drug/Non Drug Allergy documented on EMR Reaction Allergy Type Onset Date Status Penicillin Unknown Drug Allergy Active Results Component Value Reference Range Notes UDT Reviewed date:06/06/2024 12:02:45 PM Interpretation: Performing Lab: Notes/Report: Amphetamine (AMP) N 0 - 1000 ng/ml Buprenorphine (BUP) N 0 - 10 ng/ml Oxazepam (BZO) N 0 - 300 ng/ml Cocaine (OBDULIO) N 0 - 300 ng/ml Methamphetamine (mAMP) N 0 - 300 ng/ml Methylenedioxymethamphetamine (MDMA) N 0 - 500 ng/ml Morphine (MOP) N 0 - 25 ng/ml Methadone (MTD) N 0 - 300 ng/ml Oxycodone (OXY) N 0 - 300 ng/ml THC N 0 - 50 ng/ml x N 0 - 1000 ng/ml x N 0 - 1000 ng/ml x N 0 - 300 ng/ml x N 0 - 300 ng/ml Reason For Referral No Information Medications Medication SIG (Take, Route, Frequency, Duration) Notes Start Date End Date Status valACYclovir HCl 1 GM Tablet TAKE 1 [...] Once a day; Duration: 30 days Active Rosuvastatin Calcium 10 MG Tablet TAKE [...] a day; Duration: 30 days 12/13/2024 Active FLUoxetine HCl 40 MG Capsule TAKE 1 CAPSULE BY MOUTH EVERY DAY; Duration: 90 Active Social History Tobacco Use: Social History [...] Thinking about quitting Tobacco use: Current smoker Problems Problem Type SNOMED Code ICD Code Onset Dates Problem Status W/U Status Risk Notes Problem Tobacco user (582233658) Nicotine dependence, cigarettes, uncomplicated (F17.210) Active confirmed Problem Insomnia disorder related to another mental disorder (13697948) Insomnia due to other mental 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) Active confirmed Problem Screening for cardiovascular system disease (065793446) Encounter for screening for cardiovascular disorders (Z13.6) Active confirmed Problem Depression Screening (313276672) Encounter for screening for depression (Z13.31) Active confirmed Problem Generalized anxiety disorder (22144854) DAMIR (generalized anxiety disorder) (F41.1) Active confirmed Problem Severe recurrent major depression without psychotic features (18401608) Severe episode of recurrent major depressive disorder, without psychotic features (F33.2) Active confirmed Problem Tobacco use (864550539) Nicotine use (Z72.0) Active confirmed Problem Feeling suicidal (942968117) Passive suicidal ideations (R45.851) Active confirmed Vital Signs Heart Rate 67 /min 12/13/2024 Height-cm 177.8 cm 12/13/2024 Blood pressure diastolic 77 mm Hg 12/13/2024 Weight-kg 73.03 kg 12/13/2024 Height 70 in 12/13/2024 Blood pressure systolic 121 mm Hg 12/13/2024 Weight 161 lbs 12/13/2024 BMI 23.1 kg/m2 12/13/2024 Encounters Encounter Location Date Provider Diagnosis [employer] [address] [facility] [address] [place] [address] 12/13/2024 Mitchell Montilla DAMIR (generalized anxiety disorder) F41.1 ; Severe episode of recurrent major depressive disorder, without psychotic features F33.2 ; Insomnia due to other mental disorder F51.05 and Nicotine dependence, cigarettes, uncomplicated F17.210 [employer] [employer] [facility] [address] [address] 06/06/2024 Iain Clubb Severe episode of recurrent major depressive disorder, without psychotic features F33.2 ; DAMIR (generalized anxiety disorder) F41.1 ; Nicotine use Z72.0 and Encounter for screening for depression Z13.31 [employer] [employer] [address] [address] 06/21/2024 Iain Clubb Encounter for screen ing for depression Z13.31 ; Encounter for screening for cardiovascular disorders Z13.6 ; Nicotine use Z72.0 ; Severe episode of recurrent major depressive disorder, without psychotic features F33.2 and DAMIR (generalized anxiety disorder) F41.1 [employer] [facility] [address] 07/15/2024 Iain Clubb Severe episode of recurrent major depressive disorder, without psychotic features F33.2 ; DAMIR (generalized anxiety disorder) F41.1 ; Passive suicidal ideations R45.851 ; Nicotine use Z72.0 ; Encounter for screening for depression Z13.31 and Encounter for screening for cardiovascular disorders Z13.6 [employer] [facility] [facility] [address] [place] [address] 08/20/2024 Mitchell Montilla Encounter for screen ing for depression Z13.31 ; Encounter for screening for cardiovascular disorders Z13.6 ; Severe episode of recurrent major depressive disorder, without psychotic features F33.2 ; DAMIR (generalized anxiety disorder) F41.1 ; Insomnia due to other mental disorder F51.05 and Nicotine dependence, cigarettes, uncomplicated F17.[address] [employer] [address] [facility] [address] [place] [address] 09/10/2024 Mitchell Montilla Nicotine use Z72.0 ; Encounter for screening for cardiovascular disorders Z13.6 ; Dietary counseling and surveillance Z71.3 ; Encounter for screening for depression Z13.31 ; Severe episode of recurrent major depressive disorder, without psychotic features F33.2 ; DAMIR (generalized anxiety disorder) F41.1 ; Insomnia due to other mental disorder F51.05 and Nicotine dependence, cigarettes, uncomplicated F17.[address] [employer] [address] [address] 10/11/2024 Mitchell Montilla Severe episode of recurrent major depressive disorder, without psychotic features F33.2 ; DAMIR (generalized anxiety disorder) F41.1 ; Insomnia due to other mental disorder F51.05 and Nicotine dependence, cigarettes, uncomplicated F17.[address] [employer] [address] [address] 11/15/2024 Mitchell Montilla DAMIR (generalized anxiety disorder) F41.1 ; Severe episode of recurrent major depressive disorder, without psychotic features F33.2 ; Insomnia due to other mental disorder F51.05 and Nicotine dependence, cigarettes, uncomplicated F17.210 [facility] [address] [address] 07/22/2024 Iain Clubb Severe episode of recurrent major depressive disorder, without psychotic features F33.[address] [employer] [address] [address] 10/14/2024 Mitchell Montilla Severe episode of recurrent major depressive disorder, without psychotic features F33.2 [facility] [address] [address] 10/15/2024 Mitchell Montilla Assessments Encounter Date Diagnosis (ICD Code) Assessment Notes Treatment Notes Treatment Clinical Notes Section Notes 10/14/2024 Severe episode of recurrent major depressive disorder, without psychotic features (ICD-10 - F33.2) 10/11/2024 DAMIR (generalized anxiety disorder) (ICD-10 - F41.1) 10/11/2024 Severe episode of recurrent major depressive disorder, without psychotic features (ICD-10 - F33.2) 11/15/2024 DAMIR (generalized anxiety disorder) (ICD-10 - F41.1) 12/13/2024 DAMIR (generalized anxiety disorder) (ICD-10 - F41.1) 06/06/2024 DAMIR (generalized anxiety disorder) (ICD-10 - F41.1) 06/06/2024 Severe episode of recurrent major depressive disorder, without psychotic features (ICD-10 - F33.2) SSRI/SNRI side effects discussed including but not limited to, gastric upset, nausea, vomiting, diarrhea and/or constipation, weight changes, sexual side effects including loss of libido, increased suicidal thoughts/behavi ors in children and young adults, and serotonin syndrome. 06/21/2024 Encounter for screening for depression (ICD-10 - Z13.31) 07/15/2024 DAMIR (generalized anxiety disorder) (ICD-10 - F41.1) - discussed therapy * patient refused. 07/15/2024 Severe episode of recurrent major depressive disorder, without psychotic features (ICD-10 - F33.2) - discussed spravato * patient refused - discussed therapy *patient refused 07/22/2024 Severe episode of recurrent major depressive disorder, without psychotic features (ICD-10 - F33.2) 09/10/2024 Nicotine use (ICD-10 - Z72.0) 08/20/2024 Encounter for screening for cardiovascular disorders (ICD-10 - Z13.6) 08/20/2024 Encounter for screening for depression (ICD-10 - Z13.31) 08/20/2024 Severe episode of recurrent major depressive disorder, without psychotic features (ICD-10 - F33.2) 07/15/2024 Passive suicidal ideations (ICD-10 - R45.851) - discussed spravato * patient refused - discussed therapy *patient refused. 06/06/2024 Nicotine use (ICD-10 - Z72.0) 06/21/2024 Encounter for screening for cardiovascular disorders (ICD-10 - Z13.6) 12/13/2024 Severe episode of recurrent major depressive disorder, without psychotic features (ICD-10 - F33.2) 11/15/2024 Severe episode of recurrent major depressive disorder, without psychotic features (ICD-10 - F33.2) 10/11/2024 Insomnia due to other mental disorder (ICD-10 - F51.05) 09/10/2024 Encounter for screening for cardiovascular disorders (ICD-10 - Z13.6) 09/10/2024 Dietary counseling and surveillance (ICD-10 - Z71.3) 12/13/2024 Insomnia due to other mental disorder (ICD-10 - F51.05) may try magnesium glycinate 200mg at bedtime 11/15/2024 Insomnia due to other mental disorder (ICD-10 - F51.05) 06/06/2024 Encounter for screening for depression (ICD-10 - Z13.31) 10/11/2024 Nicotine dependence, cigarettes, uncomplicated (ICD-10 - F17.210) 07/15/2024 Nicotine use (ICD-10 - Z72.0) -precontemplati on stage of change 06/21/2024 Nicotine use (ICD-10 - Z72.0) 08/20/2024 DAMIR (generalized anxiety disorder) (ICD-10 - F41.1) 08/20/2024 Insomnia due to other mental disorder (ICD-10 - F51.05) 07/15/2024 Encounter for screening for depression (ICD-10 - Z13.31) 06/21/2024 Severe episode of recurrent major depressive disorder, without psychotic features (ICD-10 - F33.2) SSRI/SNRI side effects discussed including but not limited to, gastric upset, nausea, vomiting, diarrhea and/or constipation, weight changes, sexual side effects including loss of libido, increased suicidal thoughts/behavi ors in children and young adults, and serotonin syndrome. 11/15/2024 Nicotine dependence, cigarettes, uncomplicated (ICD-10 - F17.210) 12/13/2024 Nicotine dependence, cigarettes, uncomplicated (ICD-10 - F17.210) 09/10/2024 Encounter for screening for depression (ICD-10 - Z13.31) 06/21/2024 DAMIR (generalized anxiety disorder) (ICD-10 - F41.1) 07/15/2024 Encounter for screening for cardiovascular disorders (ICD-10 - Z13.6) 09/10/2024 Severe episode of recurrent major depressive disorder, without psychotic features (ICD-10 - F33.2) 08/20/2024 Nicotine dependence, cigarettes, uncomplicated (ICD-10 - F17.210) 09/10/2024 DAMIR (generalized anxiety disorder) (ICD-10 - F41.1) 09/10/2024 Insomnia due to other mental disorder (ICD-10 - F51.05) 09/10/2024 Nicotine dependence, cigarettes, uncomplicated (ICD-10 - F17.210) 06/06/2024 Other Learning About Depression Screening material was printed Generalized Anxiety Disorder with Paranoia Assessment: Patient reports a long-standing history of anxiety since high school, with symptoms worsening over the past year to include paranoia. Current symptoms include excessive worrying, restlessness, decreased concentration, isolative behavior, and feelings of hopelessness. Patient rates his anxiety at 6-7 out of 10. He has been in therapy for 5-6 years but reports needing to switch therapists due to his current therapist's health issues. 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 Current medication regimen includes fluoxetine 40 mg daily, which was increased 2 months ago without significant improvement. Previous trials include sertraline. Family history is significant for anxiety in an uncle. Plan: - Increase fluoxetine to 60 mg PO daily (add 20 mg to current 40 mg dose) - Initiate bupropion 150 PO in the morning - Advised patient about potential side effects of bupropion, including initial irritability, insomnia, increased anxiety. - Cautioned against alcohol consumption while taking bupropion due to lowered seizure threshold - Continue current psychotherapy and assist in transitioning to a new therapist - Follow up to assess response to medication changes and need for further interventions Major Depressive Disorder Assessment: Patient reports symptoms consistent with major depressive disorder, including decreased energy, feelings of guilt or worthlessness, isolative behavior, and feelings of hopelessness. These symptoms have intensified over the past couple of years. Patient acknowledges suicidal thoughts without current plan or intent, with a history of one suicide attempt after high school. Current fluoxetine therapy at 40 mg daily has not provided adequate symptom relief. Plan: - Increase fluoxetine to 60 mg PO daily (as mentioned in anxiety treatment plan) - Initiate bupropion (as mentioned in anxiety treatment plan) - Discussed Spravato (esketamine) nasal spray as a potential future treatment option if current medication changes are ineffective - Monitor for changes in suicidal ideation and safety - Continue psychotherapy - Discussed crisis plan and crisis hotline '988' Insomnia Assessment: Patient reports difficulty sleeping and reliance on [id number] sleep aids (NyQuil or ZzzQuil) for sleep. Plan: - Advised to take newly prescribed bupropion in the morning to avoid exacerbating insomnia - Monitor sleep patterns with medication changes - encouraged sleep hygiene. Tobacco Use Assessment: Patient reports current tobacco use. Plan: - Initiated bupropion, which may aid in smoking cessation - Monitor for changes in smoking habits with bupropion treatment The note is transcribed using speech recognition software. It is a reflection of a visit with the patient. It might have some inaccuracy, including medication names and transcribing errors, though efforts have been made to correct them. 06/21/2024 Newton Ortega presents with ongoing depression and anxiety, currently on Prozac 40 mg and recently started bupropion. Major Depressive Disorder Assessment: Patient reports some improvement in social interactions since starting bupropion, stating It's easier to see people and talk to people. Sleep and appetite are reported as good. Reports passive suicidal ideation w/o plan/intent. The patient expresses a belief that the depression is manageable but notes ongoing conscious thoughts about it. Previous increase in Prozac from 40 mg to 60 mg was not implemented due to insurance issues. The combination of Prozac and bupropion appears to be providing some benefit, but full remission has not yet been achieved. Plan: - Attempt to increase Prozac to 60 mg PO daily, pending insurance approval - Continue bupropion 150 mg - Consider adding an antipsychotic at night at low doses for adjunct therapy if current regimen proves insufficient - Discuss potential use of lithium as a mood stabilizer if needed in the future - Follow up to assess response to medication changes and need for further interventions - encouraged initiation of therapy. - educated on spravato benefits and risks * patient denied spravato at this time Generalized Anxiety Disorder Assessment: Patient reports ongoing anxiety described as constant worry and situational anxiety. An example provided includes anxiety while waiting for the appointment, interpreting the wait as a sign that something's wrong. The anxiety is reported to be pervasive, with the patient stating, I can't understand it. It just started, and then now it's everything. Plan: - Offer hydroxyzine PRN for acute anxiety management until current regimen takes full effect * patient denied PRN hydroxyzine at this time. - Educate patient that current antidepressant medications may take 4-6 weeks to reach full effect - Encourage continuation of therapy, noting need for a new therapist due to previous therapist's illness - Follow up to assess response to current interventions and need for additional anxiety-focused treatments Substance Use Assessment: Patient inquired about the use of nicotine and marijuana. No current substance abuse reported. Plan: - discussed risk/benefit of nicotine use and discussed treatment options. * continue wellbutrin 150mg daily - Recommend against marijuana use - Continue to monitor for substance use at follow-up appointments The note is transcribed using speech recognition software. It is a reflection of a visit with the patient. It might have some inaccuracy, including medication names and transcribing errors, though efforts have been made to correct them. 07/15/2024 Newton Ortega presents with ongoing depression and passive suicidal thoughts, with recent medication adjustments including an increase in fluoxetine and continuation of Wellbutrin. Major Depressive Disorder Assessment: Patient reports ongoing depressive symptoms with a current severity of 4-5 out of 10. DAMIR-7 score has improved from 17 to 7, indicating some response to treatment. Patient experiences passive suicidal thoughts. Recent medication adjustments include increasing fluoxetine to 60 mg and continuing Wellbutrin at 150 mg. Patient reports feeling zoned out and describes a sensation of being in a bubble, which may be related to norepinephrine effects of the medication. No current hallucinations, delusions, or paranoia reported. He is not currently engaged in therapy due to discontinuation with previous therapist. Plan: - Continue fluoxetine 60 mg PO daily - Continue Wellbutrin 150 mg PO daily - follow up with MITCHELL MONTILLA on 08/20/24 - Provide crisis prevention hotline number (127) suicide safety plan in place. - Discuss potential for Spravato treatment (patient refused at this time). - Encourage patient to re-engage in therapy (discussed walk-in availability at [facility]) - Return to the walk in clinic sooner if needed. Substance Use Assessment: Patient reports discontinuation of marijuana use. Continues to use nicotine. Plan: - Encourage continued abstinence from marijuana - Address ongoing nicotine use and provide cessation resources if patient expresses interest - precontemplation stage of change for nicotine use. The note is transcribed using speech recognition software. It is a reflection of a visit with the patient. It might have some inaccuracy, including medication names and transcribing errors, though efforts have been made to correct them. 08/20/2024 Newton Lopez, a single male with no children, presents with chronic depression and anxiety symptoms since high school, currently unemployed after quitting his job at [employer] last year due to rotating shifts and poor work culture. Major Depressive Disorder Assessment: Patient reports long-standing depressive symptoms since high school, including anhedonia, lack of motivation, and passive suicidal ideation. Current symptoms include poor appetite, excessive sleep (up to 20 hours/day), neglect of housework, and chronic passive suicidal ideation. Patient has a history of a possible suicide attempt with Tylenol. Current treatment with fluoxetine 60mg daily and bupropion 150mg daily has shown minimal improvement, with patient reporting functioning at 2 out of 10 times when asked to do something, up from 0 out of 10. Patient denies current active suicidal ideation but expresses chronic passive thoughts of not wanting to be alive. Plan: - Increase bupropion to 300mg PO daily in the morning - Continue fluoxetine 60mg PO daily - Prescribe trazodone 50mg tablet for insomnia - Instructions: Start with 25mg (half tablet) at bedtime, may increase to 50mg if needed - Informed patient of potential side effect of morning grogginess - Discussed potential future treatments for treatment-resistant depression: - Atypical antipsychotics (e.g., Seroquel) - Spravato (esketamine) nasal spray - Transcranial Magnetic Stimulation (TMS) - Electroconvulsive Therapy (ECT) - Encouraged patient to consider counseling - Follow-up appointment scheduled in 3 weeks Anxiety Disorder Assessment: Patient reports significant social anxiety, requiring alcohol consumption to feel comfortable in social settings. Patient also describes long-standing anxiety related to using public restrooms, leading to restrictive eating patterns since high school. Current treatment with propranolol 150mg has provided some relief, but symptoms persist. 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 Current sleep has improved with medication but still requires TV for sleep onset. Patient denies frequent nighttime awakenings. Plan: - Prescribe temazepam 50mg tablet for insomnia - Instructions: Start with 25mg (half tablet) at bedtime, may take full tablet (50mg) as needed - Advised to take bupropion and fluoxetine in the morning due to their activating effects Hypercholesterolemi a Assessment: Patient reports high cholesterol, likely genetic in origin. Currently treated with rosuvastatin. Plan: - Continue rosuvastatin 09/10/2024 Other Macario Lopez, adult male with history of depression, anxiety, insomnia, and IBS, presenting with ongoing depressive symptoms, passive suicidal ideation, and sleep disturbances. Major Depressive Disorder Assessment: Patient reports ongoing depressive symptoms including low energy, social isolation, and chronic passive suicidal ideation. Recent increase in bupropion to 300 mg has shown some improvement in motivation and task completion. Patient has been able to clean the house and work on projects. Weight loss noted (15 lbs), likely related to poor appetite with eating only once daily. Fluoxetine 60 mg has been ineffective in managing symptoms. Plan: - Discontinue fluoxetine - Continue bupropion 300 mg - Start amitriptyline 25 mg PO at bedtime - Informed patient this medication may help with depression, sleep, and IBS symptoms - Follow up in 1 month Insomnia Assessment: Patient reports difficulty falling asleep but maintains sleep once initiated. Trazodone has been ineffective in improving sleep onset. Daytime sleepiness has generally improved, with only occasional naps. Plan: - Discontinue trazodone - Start amitriptyline 25 mg PO at bedtime (as noted above) Anxiety Assessment: Patient reports improvement in situational anxiety. Continues to avoid social situations, particularly crowded environments like bars. Irritable Bowel Syndrome (IBS) Assessment: Patient has a history of IBS. Specific current symptoms not discussed. Plan: - Start amitriptyline 25 mg PO at bedtime (as noted above) - Informed patient this medication may help with IBS symptoms Tobacco Use Assessment: Patient reports decreased cravings for cigarettes since starting bupropion, but continues to smoke the same amount due to habit. Hyperlipidemia Assessment: Patient has a history of high cholesterol and was previously prescribed rosuvastatin. Patient reports non-adherence to medication regimen. Plan: - Advised patient to obtain blood test for lipid panel Alcohol Use Assessment: Patient reports minimal alcohol use, approximately once per month. the note is transcribed using speech recognition software. It is a reflection of a visit with the patient. It might have some inaccuracy, including medication names and transcribing errors, though efforts have been made to correct them. Macario Lopez, adult male with history of depression, anxiety, insomnia, and IBS, presenting with ongoing depressive symptoms, passive suicidal ideation, and sleep disturbances. Major Depressive Disorder Assessment: Patient reports ongoing depressive symptoms including low energy, social isolation, and chronic passive suicidal ideation. Recent increase in bupropion to 300 mg has shown some improvement in motivation and task completion. Patient has been able to clean the house and work on projects. Weight loss noted (15 lbs), likely related to poor appetite with eating only once daily. Fluoxetine 60 mg has been ineffective in managing symptoms. Plan: - Discontinue fluoxetine - Continue bupropion 300 mg - Start amitriptyline 25 mg PO at bedtime - Informed patient this medication may help with depression, sleep, and IBS symptoms - Follow up in 1 month Insomnia Assessment: Patient reports difficulty falling asleep but maintains sleep once initiated. Trazodone has been ineffective in improving sleep onset. Daytime sleepiness has generally improved, with only occasional naps. Plan: - Discontinue trazodone - Start amitriptyline 25 mg PO at bedtime (as noted above) Anxiety Assessment: Patient reports improvement in situational anxiety. Continues to avoid social situations, particularly crowded environments like bars. Irritable Bowel Syndrome (IBS) Assessment: Patient has a history of IBS. Specific current symptoms not discussed. Plan: - Start amitriptyline 25 mg PO at bedtime (as noted above) - Informed patient this medication may help with IBS symptoms Tobacco Use Assessment: Patient reports decreased cravings for cigarettes since starting bupropion, but continues to smoke the same amount due to habit. Hyperlipidemia Assessment: Patient has a history of high cholesterol and was previously prescribed rosuvastatin. Patient reports non-adherence to medication regimen. Plan: - Advised patient to obtain blood test for lipid panel Alcohol Use Assessment: Patient reports minimal alcohol use, approximately once per month. the note is transcribed using speech recognition software. It is a reflection of a visit with the patient. It might have some inaccuracy, including medication names and transcribing errors, though efforts have been made to correct them. 10/11/2024 Newton Lopez presents with ongoing depression and anxiety symptoms, reporting increased anxiety while golfing and persistent depressive symptoms despite medication changes. Major Depressive Disorder with Anxiety Assessment: Patient reports worsening anxiety symptoms since switching from fluoxetine to amitriptyline, particularly noticing increased anxiety while golfing. Depression symptoms persist, including passive thoughts of and lack of interest in activities. Sleep disturbances continue with multiple awakenings between 3-4 AM. Patient notes racing thoughts have improved compared to when on fluoxetine. Current medications include amitriptyline (dose not specified) and bupropion 300 mg. No reported side effects from amitriptyline. Minimal alcohol use reported. Plan: - Increase amitriptyline to 50 mg at bedtime - Continue bupropion 300 mg in the morning - Follow-up appointment in one month - If no improvement noted at follow-up, consider: - Adding atypical antipsychotics - Spravato nasal spray - Auvelity (bupropion + dextromethorpha n) the note is transcribed using speech recognition software. It is a reflection of a visit with the patient. It might have some inaccuracy, including medication names and transcribing errors, though efforts have been made to correct them. 11/15/2024 Newton Lopez presents with a history of depression and anxiety, recently switched from amitriptyline to fluoxetine due to vivid dreams and recurring anxiety. Major Depressive Disorder with Anxiety Assessment: Patient was previously on amitriptyline 50mg, which was discontinued due to vivid dreams and recurring daytime anxiety. Switched to fluoxetine, currently taking 10mg (self-adjusted from 20mg). Reports significant improvement in anxiety symptoms, describing them as decimated. Racing thoughts have improved. Passive thoughts of persist but are less intense than before. Sleep quality remains poor despite adequate duration. Patient has shown increased social engagement, attending a coworker's halfway constitution party. Recently secured employment starting November 26. Plan: - Continue fluoxetine daily - Continue bupropion (morning dose) - Discussed potential augmentation strategies: - Spravato (esketamine) - Vraylar (cariprazine) - Auvelity (bupropion + dextromethorpha n) - Patient prefers to defer medication changes until after starting new job - Follow-up in approximately one month to reassess need for medication adjustments the note is transcribed using speech recognition software. It is a reflection of a visit with the patient. It might have some inaccuracy, including medication names and transcribing errors, though efforts have been made to correct them. Plan Of Treatment No Information Insurance Providers Payer Name Payer Address Payer Phone Subscriber Number Group Number Insured Name Patient Relationship to Insured Coverage Start Date Coverage End Date [facility] [address] [place] [phone] [id number] MACARIO LOPEZ Self - patient is the insured Medical (General) History Medical History History ICD Code Past Psychiatric History: Anxiety Disord er abdominal aortic aneurysm: No atrial fibrillation: No chronic fatigue syndrome: No essential tremor: No hyperlipidemia: No hypertension: No Parkinson's disease: No restless leg syndrome: No stroke: No subdural hematoma: No type 1 diabetes mellitus: No type 2 diabetes mellitus: No vitamin B12 deficiency: No vitamin D deficiency: Yes Herpes simplex virus 1 hyperlipidemia Imported from [facility]: On 07/04/2024 the patient had an office [...] be within the normal range of 20-24. Surgical History Surgery Date(Month/Year) shoulder surgery wisdom teeth extraction Hemorrhoid and anal fissure repair Hospitalization History Reason Date(Month/Year) inpatient psychiatric hospitalization- a nxiety/panic
== END 2025-01-07 14:08 | disposition home or self-care (01) ==
PROVIDERS: Emergency Provider Nurse Practitioner Family; PCP Physician Assistant
DX: J00 Acute nasopharyngitis [common cold] (principal); F17.210 Nicotine dependence, cigarettes, uncomplicated; E03.9 Hypothyroidism, unspecified; F41.9 Anxiety disorder, unspecified
CPT/HCPCS: 87081; 87880; 99213; G0463